=== PATIENT | female | born 1965 | race Caucasian/White ===

== ENCOUNTER 2018-05-20 13:51 | Emergency (ER) | payer MEDICAID ==
[~2018-05-20] VITALS: Ht 154.9 cm; Wt 72.6 kg
[2018-05-20 14:10] VITALS: BP 131/81
[2018-05-20] MEDS: IBUPROFEN 600 MG TAB PO ONE (15:24)
[2018-05-20] MEDS: traMADol 50 MG TAB PO ONE (15:25)
[2018-05-20 15:42] VITALS: BP 128/80
== END 2018-05-20 15:42 | disposition home or self-care (01) ==
LOC: MED 13:51
DX: M17.11 Unilateral primary osteoarthritis, right knee (principal)
CPT/HCPCS: 73562; 99284; Q0092

== ENCOUNTER 2020-07-02 20:52 | Emergency (ER) | payer OTHER, MEDICAID ==
[~2020-07-02] VITALS: Ht 154.9 cm; Wt 68.7 kg
[2020-07-02 20:58] VITALS: BP 122/84
--- NOTE | 2020-07-02 21:00 | NUR ---
amb to bed 09
--- NOTE | 2020-07-02 21:08 | NUR ---
Dr. Maynard at bedside assessing pt
--- NOTE | 2020-07-02 21:18 | NUR ---
xray at bedside.
--- NOTE | 2020-07-02 21:18 | NUR ---
55 year old female coming in for c/o nasuea and general body weakness x 3 days. states sister x 3 days but denies her having COVID. reports lethargy x 3 days. denies vomiting or diarrhea or constipation. reports headache and blurry vision x 2 days. CBL sounds. respirations even and unlabored. denies SOB/cough. bowel sounds normoactive on all quads. connected to cardiac monitoring. pmhx: denies nka
[2020-07-02] MEDS: NACL 0.9% 1,000 ML IV SCH ×2 (21:20→21:52)
--- NOTE | 2020-07-02 21:25 | NUR ---
blood sent to lab
[2020-07-02 21:38] LABS: BASOPHILS % (AUTO) 0.2 % (0.0-2.0); EOSINOPHILS % (AUTO) 0.1 % (0.0-4.0); HEMATOCRIT 45.5 % (36-48); HEMOGLOBIN 15.8 g/dL (12.0-16.0); LYMPHOCYTES # (AUTO) 1.1 K/uL (2.5-16.5); MEAN CORPUSCULAR HEMOGLOBIN 29 pg (27-31); MEAN CORPUSCULAR HGB CONC 35 g/dL (33-37); MEAN CORPUSCULAR VOLUME 84.1 fL (80-94); MONOCYTES # (AUTO) 0.6 K/uL (0.8-1.0); MONOCYTES % (AUTO) 13.3 % (1.7-9.3); NEUTROPHILS # (AUTO) 2.7 K/uL (1.8-7.7); NEUTROPHILS % (AUTO) 61.4 % (42.2-75.2); PLATELET COUNT (AUTO) 285 K/uL (140-450); RED BLOOD CELL COUNT(AUTO) 5.42 MIL/uL (4.20-5.40); RED CELL DISTRIBUTION WIDTH 12.8 % (11.6-13.7); WHITE BLOOD COUNT (AUTO) 4.3 K/uL (4.8-10.8)
[2020-07-02 21:57] LABS: ALBUMIN 3.5 g/dL (3.4-5.0); ANION GAP 11.7 (8-16); CREATININE 0.7 mg/dL (0.6-1.3); POTASSIUM 3.7 mmol/L (3.5-5.1); PROTHROMBIN TIME 10.3 secs (10.8-13.4); TOTAL BILIRUBIN 0.5 mg/dL (0.0-1.0)
[2020-07-02 22:45] VITALS: BP 122/84
--- NOTE | 2020-07-02 22:45 | NUR ---
Patient discharged with v/s stable. Written and verbal after care instructions given and explained. Patient alert, oriented and verbalized understanding of instructions. Ambulatory with steady gait. All questions addressed prior to discharge. ID band removed. Patient advised to follow up with PMD. Rx of PROTONIX given. Patient educated on indication of medication including possible reaction and side effects. Opportunity to ask questions provided and answered.
[2020-07-02 22:48] LABS: APPEARANCE,URINE CLEAR (CLEAR); BILIRUBIN,URINE NEGATIVE (NEGATIVE); BLOOD, URINE TRACE-I (NEGATIVE); COLOR,URINE YELLOW (YELLOW); LEUKOCYTE ESTERASE ,URINE NEGATIVE (NEGATIVE); NITRITE, URINE NEGATIVE (NEGATIVE); UGLUCOSE NEGATIVE (NEGATIVE)
[2020-07-02 23:09] LABS: RBC,URINE 0-5 /HPF (0-5); WBC,URINE 0-5 /HPF (0-5)
== END 2020-07-02 22:45 | disposition home or self-care (01) ==
LOC: MED 20:52
DX: K29.70 Gastritis, unspecified, without bleeding (principal); R53.1 Weakness
CPT/HCPCS: 36415; 71045; 80053; 81001; 81025; 83605; 83880; 84484; 85025; 85610; 85730; 87040; 87086; 93005; 99285; J7030; Q0092

== ENCOUNTER 2021-11-03 19:04 | Emergency (ER) | payer OTHER, MEDICAID ==
--- NOTE | 2021-11-03 19:09 | NUR ---
called outside, no answer at this time
--- NOTE | 2021-11-03 19:21 | NUR ---
called in tent no answer.
--- NOTE | 2021-11-03 19:28 | NUR ---
called in tent no answer.
--- NOTE | 2021-11-03 19:50 | NUR ---
CALLED PT ON CELL PHONE, NOT A VAILD NUMBER. LWBS
== END 2021-11-03 19:50 | disposition left against medical advice (07) ==
LOC: MED 19:04
DX: N93.9 Abnormal uterine and vaginal bleeding, unspecified (principal); J02.9 Acute pharyngitis, unspecified; Z53.21 Procedure and treatment not carried out due to patient leaving prior to being seen by health care provider

== ENCOUNTER 2022-02-21 09:35 | Emergency (ER) | payer OTHER, MEDICAID ==
[~2022-02-21] VITALS: Ht 144.8 cm; Wt 77.2 kg
[2022-02-21 09:37] VITALS: BP 122/88
--- NOTE | 2022-02-21 10:20 | NUR ---
56/F C/O LUMP ON UPPER RIGHT ABDOMEN, PATIENT REPORTS NOTICING LUMP THIS MORNING WHILE IN THE SHOWER. DENIES PAIN AT SITE, NO REDNESS OR WARMTH NOTED AT SITE. PATIENT DENIES PAIN, V/D OR URINARY SYMPTOMS, REPORTS SOME NAUSEA THIS MORNING.
[2022-02-21 10:43] VITALS: BP 122/88
--- NOTE | 2022-02-21 10:44 | NUR ---
Patient discharged with v/s stable. Written and verbal after care instructions ABOUT LIPOMA given and explained. Patient verbalized understanding. Ambulatory with steady gait. All questions addressed prior to discharge. Advised to follow up with PMD.
== END 2022-02-21 10:44 | disposition home or self-care (01) ==
LOC: MED 09:35
DX: R22.2 Localized swelling, mass and lump, trunk (principal)
CPT/HCPCS: 99281

== ENCOUNTER 2023-12-03 13:28 | Emergency (ER) | payer OTHER, MEDICAID ==
[~2023-12-03] VITALS: Ht 144.8 cm; Wt 65.8 kg
[2023-12-03 13:46] VITALS: BP 132/85; PULSE 88; RESP 18; TEMP 98; O2SAT 97
[2023-12-03] MEDS ORDERED: CEPH-588 PO (14:42)
[2023-12-03] MEDS ORDERED: BACTO TP (14:42)
== END 2023-12-03 14:48 | disposition home or self-care (01) ==
LOC: MED 13:28
DX: J34.0 Abscess, furuncle and carbuncle of nose (principal); Z79.899 Other long term (current) drug therapy
CPT/HCPCS: 99283

== ENCOUNTER 2024-06-27 08:49 | Emergency (ER) | payer OTHER, MEDICAID ==
[~2024-06-27] VITALS: Ht 152.4 cm; Wt 76.4 kg
[~2024-06-27 08:49] MED LIST: BACTO TP; CEPH-588 PO
[2024-06-27 08:54] VITALS: BP 144/87; PULSE 79; RESP 16; TEMP 98.1; O2SAT 99
[2024-06-27 09:57] LABS: BASOPHILS # (AUTO) 0.1 K/uL (0.00-0.22); BASOPHILS % (AUTO) 0.9 % (0.0-2.0); EOSINOPHILS # (AUTO) 0.8 K/uL (0-0.4); EOSINOPHILS % (AUTO) 10.6 % (0.0-4.0); HEMATOCRIT 43.6 % (36-48); HEMOGLOBIN 15.2 g/dL (12.0-16.0); LYMPHOCYTES # (AUTO) 2.5 K/uL (2.5-16.5); LYMPHOCYTES % (AUTO) 33.8 % (20.5-51.1); MEAN CORPUSCULAR HEMOGLOBIN 29 pg (27-31); MEAN CORPUSCULAR HGB CONC 35 g/dL (33-37); MEAN CORPUSCULAR VOLUME 84.4 fL (80-94); MONOCYTES # (AUTO) 0.7 K/uL (0.8-1.0); MONOCYTES % (AUTO) 10.2 % (1.7-9.3); NEUTROPHILS # (AUTO) 3.3 K/uL (1.8-7.7); NEUTROPHILS % (AUTO) 44.5 % (42.2-75.2); PLATELET COUNT (AUTO) 329 K/uL (140-450); RED BLOOD CELL COUNT(AUTO) 5.17 MIL/uL (4.20-5.40); RED CELL DISTRIBUTION WIDTH 13.6 % (11.6-13.7); WHITE BLOOD COUNT (AUTO) 7.4 K/uL (4.8-10.8)
[2024-06-27 10:24] VITALS: BP 144/87; PULSE 79; RESP 16; TEMP 98.1; O2SAT 99
[2024-06-27 10:33] LABS: ANION GAP 9.7 (8-16); CALCIUM 9.1 mg/dL (8.5-10.1); CARBON DIOXIDE 31.2 mmol/L (21-32); CREATININE 0.7 mg/dL (0.6-1.3); POTASSIUM 3.9 mmol/L (3.5-5.1)
== END 2024-06-27 10:24 | disposition left against medical advice (07) ==
LOC: MED 08:49
DX: R21 Rash and other nonspecific skin eruption (principal); D22.5 Melanocytic nevi of trunk; L90.5 Scar conditions and fibrosis of skin; Z79.899 Other long term (current) drug therapy
CPT/HCPCS: 36415; 80048; 85025; 99283